=== PATIENT | female | born 1970 | race Caucasian/White ===

== ENCOUNTER 2017-01-24 20:50 | Emergency (ER) | payer SELFPAY ==
[~2017-01-24] VITALS: Ht 165.1 cm; Wt 145.5 kg
[2017-01-24 20:50] VITALS: BP 166/73
[2017-01-24] MEDS ORDERED: ZANT1TAB PO (20:59)
[2017-01-24] MEDS ORDERED: KLON0.5T PO (20:59)
[2017-01-24] MEDS ORDERED: LISI20TA PO (20:59)
[2017-01-24] MEDS ORDERED: LITH300C PO (20:59)
[2017-01-24] MEDS ORDERED: WELL200T PO (20:59)
[2017-01-24] MEDS ORDERED: NEXI40CA PO (20:59)
[2017-01-24] MEDS ORDERED: PRAV40TA2 PO (20:59)
[2017-01-24] MEDS ORDERED: LEVA1TAB PO (22:26)
[2017-01-24] MEDS ORDERED: PYRI1TAB5 PO (22:26)
[2017-01-24] MEDS ORDERED: LevoFLOXacin 250 MG TABLET PO ONE (22:30)
[2017-01-24] MEDS ORDERED: PHENAZOPYRIDINE 100 MG TAB PO ONE (22:30)
== END 2017-01-24 22:36 | disposition home or self-care (01) ==
LOC: M ED 20:50
DX: N39.0 Urinary tract infection, site not specified (principal)